=== PATIENT | female | born 1980 | race Caucasian/White ===

== ENCOUNTER → 2018-05-07 | Outpatient (CLI) | payer BC ==
--- NOTE | 2018-05-07 09:41 | US ---
EXAMINATION TYPE: US abdomen complete DATE OF EXAM: 05/07/2018 COMPARISON: NONE CLINICAL HISTORY: R10.13 epigastric pain. Symptoms x 1 month; MEDS: generic Zantac, Zoloft EXAM MEASUREMENTS: Liver Length: 16.4 cm Gallbladder Wall: 0.2 cm CBD: 0.3 cm Spleen: 10.5 cm Right Kidney: 10.6 x 5.7 x 4.4 cm Left Kidney: 11.4 5.1 x 5.7 cm Pancreas: Pancreas appears hypoechoic heterogenous with more focal area of hypoechogenicity on image 4 within the pancreatic body. Liver: medial left lobe hyperechoic, oval focus is seen = 1.0 x 1.2 x 1.2 ; hyperechoic oval mass se en lateral left lobe and at splenic hilum (see spleen notes for solid mass size) Gallbladder: wnl Evidence for sonographic Smallwood's sign: no CBD: wnl Spleen: wnllarge hyperechoic mass seen at left lobe liver and at splenic hilum = 5.9 x 6.3 x 6.9cm Right Kidney: wnl Left Kidney: complex round mass seen upper cortex = 2.4 x 2.2 x 2.0cm Upper IVC: wnl Abd Aorta: wnl IMPRESSION: 1. Multiple hyperechoic hepatic masses. Consideration is for hepatic adenoma in a female of this age group, hemangiomata, or metastasis given the below findings. Full characterization with three-phase e nhanced abdominal CT is recommended. 2. Hyperechoic mass at the splenic hilum, which could relate to adenopathy or mesenteric/mesenchymal mass. This also can be further evaluated with CT. 3. Complex left renal mass with portions appearing solid measuring up to 2.4 cm. Given the above find ings the possibility of renal cell carcinoma with metastasis is a consideration can be evaluated for on the above recommended CT.
--- NOTE | 2018-05-07 15:57 | CT ---
EXAMINATION TYPE: CT abdomen wo/w con DATE OF EXAM: 05/07/2018 COMPARISON: Ultrasound same day HISTORY: Epigastric pain. Abnormal US. CT DLP: 998 mGycm Automated exposure control for dose reduction was used. TECHNIQUE: Helical acquisition of images was performed from the lung bases through the top of iliac crest to include entire abdomen. CONTRAST: Performed with Oral Contrast and without and with IV Contrast, patient injected with 100 mL of Isovue M300. FINDINGS: LUNG BASES: No significant abnormality is appreciated. LIVER/GB: There is a large mass extending from the left lobe of the liver measuring approximately 7.8 cm which shows decreased attenuation precontrast images show some centripetal nodular enhancement fo llowing contrast administration. Smaller focus present in the posterior right lobe of the liver and p ostcontrast axial image 22 measures approximately 1 cm in size and is not seen on more delayed images . Hypodense focus within the left lobe of the liver measuring 12 mm on axial image [address] shows some [address] ipetal nodular enhancement on delayed imaging. PANCREAS: No significant abnormality is seen. SPLEEN: No significant abnormality is seen. ADRENALS: No significant abnormality is seen. KIDNEYS: 2.7 cm hypodense mass present at the upper pole of the left kidney shows enhancement followi ng contrast administration. Punctate calcification is present on precontrast images. There is no evid ent hydronephrosis. Masses indeterminate. BOWEL: No significant abnormality is seen. LYMPH NODES: No significant abnormality is appreciated. OSSEOUS STRUCTURES: No significant abnormality is seen. FREE AIR: No Free Air visible ASCITES: None visible. RETROPERITONEAL ADENOPATHY: No Retroperitoneal Adenopathy visible. OTHER: IMPRESSION: INDETERMINATE LEFT RENAL MASS, RECOMMEND UROLOGY CONSULT. LARGER LESIONS WITHIN THE LIVER LIKELY REPR ESENT HEMANGIOMAS, POSTERIOR RIGHT LOBE OF LIVER LESION IS LESS CHARACTERISTIC, FOLLOW-UP IS RECOMMEN DED TO ASSESS FOR STABILITY.
== END | disposition home or self-care (01) ==
LOC: RADUSMAIN 08:12
PROVIDERS: ATTEND Family Medicine
DX: K76.9 Liver disease, unspecified (principal); R16.2 Hepatomegaly with splenomegaly, not elsewhere classified; N28.89 Other specified disorders of kidney and ureter; R14.0 Abdominal distension (gaseous)
CPT/HCPCS: 76700; 74170; Q9967

== ENCOUNTER → 2018-08-05 | Outpatient (CLI) | payer OTHER ==
--- NOTE | 2018-08-05 11:26 | XR ---
EXAMINATION TYPE: XR elbow complete 3 views RT, XR Hip Complete 2 views RT DATE OF EXAM: 08/05/2018 COMPARISON: NONE HISTORY: 38-year-old female fall, pain, contusion FINDINGS: Right elbow: No acute fracture, subluxation, or dislocation. No elbow joint effusion. Right hip: No acute fracture, subluxation, or dislocation. Minimal marginal spurring along the superolateral ap tabular rim. Hip joint space is relatively maintained. IMPRESSION: Right elbow and right hip without acute osseous abnormality seen.
== END | disposition home or self-care (01) ==
LOC: RADXRMAIN 10:30
PROVIDERS: ATTEND Emergency Medicine
DX: S50.01XA Contusion of right elbow, initial encounter (principal); S70.01XA Contusion of right hip, initial encounter
CPT/HCPCS: 73502

== ENCOUNTER → 2021-07-31 | Outpatient (CLI) | payer BC ==
--- NOTE | 2021-08-02 11:57 | MM ---
Reason for exam: screening (asymptomatic). Baseline mammogram. History: Patient has history of other cancer at age 38. Family history of breast cancer in paternal grandmother. Took hormonal contraceptives beginning at age 19. Physical Findings: Nurse did not find any significant physical abnormalities on exam. MG Screening Mammo w CAD Bilateral CC and MLO view(s) were taken. The breast tissue is extremely dense which could obscure a lesion on mammography. ASSESSMENT: Benign, BI-RAD 2 RECOMMENDATION: Routine screening mammogram of both breasts in 1 year.
== END | disposition home or self-care (01) ==
LOC: RADMAMWWP 13:31
PROVIDERS: ATTEND Obstetrics & Gynecology
DX: Z12.31 Encounter for screening mammogram for malignant neoplasm of breast (principal); Z80.3 Family history of malignant neoplasm of breast
CPT/HCPCS: 77067

== ENCOUNTER → 2022-08-30 | Outpatient (CLI) | payer OTHER ==
[2022-08-30 11:38] LABS: African American GFR (CKD) >90 (>60 ml/min/1.73 sqM); Blood Urea Nitrogen 11 mg/dL (7-17); Non-African American GFR(CKD) >90 (>60 ml/min/1.73 sqM)
--- NOTE | 2022-08-30 12:35 | CT ---
EXAMINATION TYPE: CT ChestAbdPelvis w con DATE OF EXAM: 08/30/2022 COMPARISON: CT abdomen 2018. HISTORY: Personal history of renal cancer. CT DLP: 1509 mGycm. Automated Exposure Control for Dose Reduction was Utilized. CONTRAST: CT scan of the thorax, abdomen and pelvis is performed with oral and with IV Contrast, patient inject ed with 70ml mL of Isovue 300. FINDINGS: LUNGS: The lungs are grossly clear, there is no concerning parenchymal mass or nodule identified. T here is no pleural effusion or pneumothorax seen. The tracheobronchial tree is patent. MEDIASTINUM: There are no greater than 1 cm hilar or mediastinal lymph nodes. No cardiomegaly or pe ricardial effusion is seen. LIVER/GB: Large heterogeneous hypodense mass lateral segment left hepatic lobe is redemonstrated havi ng more central hypodensity measuring 6.7 x 7.4 x 7.9 cm axial image 57 and coronal image 30 is not s ignificantly changed in size or appearance from prior study. Roughly 1.1 cm hypodense lesion superio r to the axial image 52 is not significantly changed from prior. PANCREAS: No significant abnormality is seen. SPLEEN: No significant abnormality is seen. ADRENALS: No significant abnormality is seen. KIDNEYS: Partial nephrectomy changes along the posterior upper aspect of the left kidney coronal imag e 63 are now present. There is symmetric cortical uptake and excretion from both kidneys without hydr onephrosis seen bilaterally. There is new subcentimeter roughly 7 mm hypodense round lesion anterior midpole left kidney series 7 image 28 2 small to further characterize but favor benign thin-walled cy st. BOWEL: Oral contrast reaches level of the proximal sigmoid colon. Patient has little intra-abdominal fat. There is slightly redundant sigmoid colon. There is no suspicious small or large bowel dilatatio n. Note is made of proximal small bowel into small bowel intussusception coronal image 20, this is pr esumed transient as majority of ingested contrast has passed distal to this point. GENITAL ORGANS: Anteverted uterus projects to left of midline. LYMPH NODES: No greater than 1cm abdominal or pelvic lymph nodes are appreciated. OSSEOUS STRUCTURES: No significant abnormality is seen. OTHER: No significant additional abnormality is seen. IMPRESSION: Interval left-sided partial nephrectomy changes. There is new nonspecific 7 mm hypodense round lesion mid pole level left kidney favored benign. No definitive new mass or adenopathy to sugge st active neoplastic recurrence. Note is made of proximal small bowel to small bowel intussusception on current CT favor transient. Hepatic masses presumed benign given interval greater than 4 year stab ility.
== END | disposition home or self-care (01) ==
LOC: RADCTMAIN 10:04
PROVIDERS: ATTEND Family Medicine
DX: N28.9 Disorder of kidney and ureter, unspecified (principal); R16.0 Hepatomegaly, not elsewhere classified; K56.1 Intussusception; Z85.528 Personal history of other malignant neoplasm of kidney; Z90.5 Acquired absence of kidney
CPT/HCPCS: 82565; 84520; 71260; 74177; 36415; Q9967

== ENCOUNTER → 2023-07-08 | Outpatient (CLI) | payer OTHER ==
--- NOTE | 2023-07-08 18:32 | US ---
EXAMINATION TYPE: US kidneys/renal and bladder DATE OF EXAM: 07/08/2023 COMPARISON: 05/07/2018 CLINICAL INDICATION: Female, 43 years old with history of N28.89 OTHER SPECIFIED DISORDERS OF KIDNEY AND URE; Hx Lt. Renal cancer 2018, partial nephrectomy superior pole EXAM MEASUREMENTS: Right Kidney: 10.9x4.1x5.0 cm Left Kidney: 11.8x5.7x5.4 cm [employer] notes: Exam slightly limited by bowel gas, area in left Liver again seen now measurin .1x8.3x6.3cm (versus 6.9 x 6.3 x 5.9 cm, previously) Right Kidney: No hydronephrosis or masses seen Left Kidney: Limited detailed assessment of the lower pole due to bowel gas shadowing. No hydronephro sis or mass along the visualized portions. Known posterior change to the upper pole of the left kidne y not well demonstrated by ultrasound. Bladder: wnl Bilateral Jets seen: Yes IMPRESSION: 1. No hydronephrosis on either side. 2. Known postsurgical change to the upper pole the left kidney not well demonstrated by ultrasound. 3. Redemonstrated large left hepatic lobe mass measuring approximately 8.3 cm versus 6.9 cm back in 2 018. A sclerosed, large hemangioma is favored.
== END | disposition home or self-care (01) ==
LOC: RADUSWWP 13:25
PROVIDERS: ATTEND Family Medicine
DX: N28.89 Other specified disorders of kidney and ureter (principal); R16.0 Hepatomegaly, not elsewhere classified
CPT/HCPCS: 76770